=== PATIENT | female | born 1985 ===

== ENCOUNTER 2020-03-14 07:32 | Inpatient (IN) ==
[2020-03-14] MEDS ORDERED: OXYTOCIN 30 UNITS/500 ML BAG IV PRN (09:25)
[2020-03-14 09:50] LABS: Hematocrit (blood only) 34.7 % (37-47); Hemoglobin 11.9 g/dL (12.0-16.0); Mean Corpuscular Hemoglobin 29.5 pg (25-34); Mean Corpuscular Volume 85.9 fL (80-100); Mean Platelet Volume 12.6 fL (7.4-10.4); Platelet Count 170 K/uL (130-400); RDW Coefficient of Variation 14.3 % (11.5-14.5); RDW Standard Deviation 44.7 fL (36.4-46.3); Red Blood Count 4.04 M/uL (4.2-5.4); White Blood Count 12.58 K/uL (4.8-10.8)
--- NOTE | 2020-03-14 10:04 | Obstetrical Progress Note ---
Date of Service March 14, 2020 Assessment & Plan Admission and Anticipated Discharge Date Admission Date: March 14, 2020 Subjective Admit Note 34 F [id number] at 40.3 weeks admitted for induction of labor for post-dates . Her GBS is negative. Covid is negative. Cervix is closed/50/- 3/vertex/posterior/intact. Discussed need to ripen cervix with her and her . Will plan for Cytotec vaginally. EFW 8-9 lbs. Results & Data ([facility]) Vital Signs (Past 12 Hours) Vital Signs Temp Pulse Resp BP 03/14/20 08:10 36.8 C 77 18 118/65 03/14/20 08:09 36.8 C 77 18 118/65 03/14/20 08:02 77 132/56 L
[2020-03-14 10:06] LABS: Mean Corpuscular Hgb Conc 34.3 g/dL (32-36)
[2020-03-14] MEDS ORDERED: Nursing to Pharmacy Communication SCH (10:15)
[2020-03-14] MEDS: miSOPROStoL 25 MCG TAB PV SCH ×2 (10:48→14:57)
--- NOTE | 2020-03-14 10:53 | Obstetrical Progress Note ---
Date of Service March 14, 2020 Assessment & Plan Admission and Anticipated Discharge Date Admission Date: March 14, 2020 Physical Exam Physical Exam: Cytotec 25 mcg placed vaginally Constitutional: WD/WN, vitals as above comfortable Results & Data ([facility]) Vital Signs (Past 12 Hours) Vital Signs Temp Pulse Resp BP 03/14/20 08:10 36.8 C 77 18 118/65 03/14/20 08:09 36.8 C 77 18 118/65 03/14/20 08:02 77 132/56 L
[2020-03-14] MEDS ORDERED: miSOPROStoL 25 MCG TAB PV SCH (12:00)
--- NOTE | 2020-03-14 14:59 | Obstetrical Progress Note ---
Date of Service March 14, 2020 Assessment & Plan Admission and Anticipated Discharge Date Admission Date: March 14, 2020 Physical Exam Genitourinary: Manual OB Exam: + cervical dilation fingertip, + cervical effacement 50% and + station high OB Exam Monitor Tracing: + external FHT monitor used, + external uterine monitor used and + category I Cytotec 25 mcg placed vaginally Results & Data ([facility]) Vital Signs (Past 12 Hours) Vital Signs Temp Pulse Resp BP 03/14/20 11:51 68 124/72 03/14/20 11:50 36.7 C 68 18 124/72 03/14/20 08:10 36.8 C 77 18 118/65 03/14/20 08:09 36.8 C 77 18 118/65 03/14/20 08:02 77 132/56 L
[2020-03-14] MEDS ORDERED: DINOPROSTONE 10 MG INSERT PV ONE (19:48)
--- NOTE | 2020-03-14 19:48 | Obstetrical Progress Note ---
Date of Service March 14, 2020 Assessment & Plan Admission and Anticipated Discharge Date Admission Date: March 14, 2020 Physical Exam Genitourinary: Manual OB Exam: + cervical dilation fingertip, + cervical effacement 50% and + station high OB Exam Monitor Tracing: + external FHT monitor used, + external uterine monitor used and + category I Will place Cervidil for ripening Results & Data ([facility]) Vital Signs (Past 12 Hours) Vital Signs Temp Pulse Resp BP 03/14/20 19:04 36.6 C 18 03/14/20 18:59 77 124/67 03/14/20 16:06 74 127/70 03/14/20 11:51 68 124/72 03/14/20 11:50 36.7 C 68 18 124/72 03/14/20 08:10 36.8 C 77 18 118/65 03/14/20 08:09 36.8 C 77 18 118/65 03/14/20 08:02 77 132/56 L
--- NOTE | 2020-03-14 21:19 | Obstetrical Progress Note ---
Date of Service March 14, 2020 Assessment & Plan Admission and Anticipated Discharge Date Admission Date: March 14, 2020 Physical Exam Constitutional: WD/WN, vitals as above comfortable Genitourinary: Cervidil 10 mg placed vaginally for cervical ripening Results & Data ([facility]) Vital Signs (Past 12 Hours) Vital Signs Temp Pulse Resp BP 03/14/20 19:04 36.6 C 18 03/14/20 18:59 77 124/67 03/14/20 16:06 74 127/70 03/14/20 11:51 68 124/72 03/14/20 11:50 36.7 C 68 18 124/72
[2020-03-15] MEDS: LACTATED RINGER'S 1,000 ML IV PRN ×3 (00:09→06:06)
[2020-03-15] MEDS ORDERED: BUPIVACAINE 0.25% 30 ML VIAL ONE (00:18)
[2020-03-15] MEDS ORDERED: fentaNYL citrate 100 MCG/2 ML VIAL ONE (00:18)
[2020-03-15] MEDS ORDERED: ePHEDrine sulfate 50 MG/ML AMP ONE (00:18)
[2020-03-15] MEDS ORDERED: fentaNYL 2MCG/ML ROPIV 1.25MG/ML 100 ML BAG EPI ONE (00:19)
[2020-03-15] MEDS ORDERED: NALOXONE HCL 1 MG in SODIUM CHLORIDE 0.9% 1000ML 1,000 ML IV PRN (00:23)
[2020-03-15] MEDS ORDERED: NALOXONE HCL 0.4 MG/1 ML VIAL/CARP IV PRN (00:23)
[2020-03-15] MEDS ORDERED: ONDANSETRON INJ 2 MG/ML 2 ML VIAL IV PRN (00:23)
[2020-03-15] MEDS ORDERED: ePHEDrine sulfate 50 MG/ML AMP IV PRN (00:23)
[2020-03-15] MEDS ORDERED: fentaNYL 2MCG/ML ROPIV 1.25MG/ML 100 ML BAG EPI PRN (00:23)
[2020-03-15] MEDS ORDERED: DiphenhydrAMINE HCL 50 MG/ML VIAL IV PRN (00:23)
--- NOTE | 2020-03-15 00:25 | Anesthesiology Consultation ---
Date of Service March 15, 2020 Assessment & Plan (1) Encounter for pre-operative examination: Chart Review Chart Review: Patient NOT seen in Pre Admission Testing and Acceptable Risk for Labor Epidural Consults Requested none History Height/Weight Height: 5 ft 7 in Weight: 102.512 kg Allergies Allergy/AdvReac Type Severity Reaction Status Date / Time No Known Allergies Allergy Verified 03/14/20 19:32 Medications Home Medications Medication Instructions Recorded Confirmed Last Taken vit no.[id number] 1 tab PO DAILY 03/14/20 03/14/20 03/14/20 06:30 [ Vitamin] Active Medications Generic Name Dose Route Start Last Admin Trade Name Freq PRN Reason Stop Dose Admin Misoprostol 25 mcg 03/14/20 10:15 03/14/20 14:57 Misoprostol 25 Mcg Tab PV 04/13/20 10:14 25 mcg Q4H FRACISCO Administration Past Medical History Medical History SAB (spontaneous ) 2015 (spontaneous vaginal delivery) 2014 Exercise / Class Metabolic Activity II 4-5 Yardwork/Stairs/Walk up hill Past Anesthesia History No Hx of Anesthesia Complications and No Family Hx of Anesthesia Complications History of PONV No Hx of PONV and No Hx of Motion Sickness Social History Smoking Status: Never smoker Do You Dip or Chew Tobacco: No Hx Alcohol Use: No Hx Substance Use: No Physical Exam Vital Signs Last Vital Signs Temp 37.1 C 03/14/20 23:00 Pulse 72 03/15/20 00:37 Resp 18 03/14/20 23:00 BP 142/75 H 03/15/20 00:37 Pulse Ox 99 03/15/20 00:36 Testing Laboratory Results 03/14/20 09:35
--- NOTE | 2020-03-15 05:03 | Obstetrical Progress Note ---
Date of Service March 15, 2020 Assessment & Plan Admission and Anticipated Discharge Date Admission Date: March 14, 2020 Physical Exam Genitourinary: OB Exam Abdomen: + vertex and + regular contractions Manual OB Exam: + cervical dilation 9 cm, + cervical effacement 100%, + station -2 (will use peanut ball) and + amniotic fluid meconium OB Exam Monitor Tracing: + external FHT monitor used, + external uterine monitor used, + category I and + normal FHT variability AROM with Amni-hook light meconium fluid anterior lip Results & Data ([facility]) Vital Signs (Past 12 Hours) Vital Signs Temp Pulse Resp BP Pulse Ox 03/15/20 04:56 96 H 98 03/15/20 04:51 79 96 03/15/20 04:49 81 110/59 L 03/15/20 04:46 82 96 03/15/20 04:41 77 96 03/15/20 04:36 78 96 03/15/20 04:34 75 109/56 L 03/15/20 04:31 75 96 03/15/20 04:30 18 03/15/20 04:26 78 95 03/15/20 04:21 76 96 03/15/20 04:20 77 106/55 L 03/15/20 04:16 77 97 03/15/20 04:11 75 96 03/15/20 04:06 78 97 03/15/20 04:04 86 115/58 L 03/15/20 04:01 83 97 03/15/20 04:00 18 03/15/20 03:56 107 H 96 03/15/20 03:51 86 98 03/15/20 03:49 81 116/60 03/15/20 03:46 72 97 03/15/20 03:41 73 97 03/15/20 03:36 79 114/59 L 97 03/15/20 03:31 76 97 03/15/20 03:30 18 03/15/20 03:26 80 97 03/15/20 03:21 82 97 03/15/20 03:20 72 122/61 03/15/20 03:16 77 98 03/15/20 03:11 71 97 03/15/20 03:06 72 96 03/15/20 03:05 71 109/59 L 03/15/20 03:01 83 96 03/15/20 03:00 18 03/15/20 02:56 82 97 03/15/20 02:51 78 96 03/15/20 02:50 72 107/58 L 03/15/20 02:46 78 96 03/15/20 02:41 71 96 03/15/20 02:36 77 107/57 L 97 03/15/20 02:31 71 97 03/15/20 02:30 18 03/15/20 02:26 72 97 03/15/20 02:21 74 98 03/15/20 02:20 82 111/63 03/15/20 02:16 82 97 03/15/20 02:11 95 H 98 03/15/20 02:06 74 96 03/15/20 02:04 72 101/56 L 03/15/20 02:01 73 96 03/15/20 02:00 18 03/15/20 01:56 73 95 03/15/20 01:51 64 96 03/15/20 01:49 68 107/52 L 03/15/20 01:46 72 96 03/15/20 01:41 77 97 03/15/20 01:36 68 97 03/15/20 01:34 67 116/57 L 03/15/20 01:31 78 97 03/15/20 01:30 18 03/15/20 01:26 75 97 03/15/20 01:21 65 97 03/15/20 01:20 71 112/59 L 03/15/20 01:16 72 98 03/15/20 01:11 71 99 03/15/20 01:06 78 99 03/15/20 01:02 75 115/58 L 03/15/20 01:01 84 98 03/15/20 01:00 18 03/15/20 00:56 84 97 03/15/20 00:55 82 114/59 L 03/15/20 00:53 89 124/63 03/15/20 00:51 84 126/67 98 03/15/20 00:50 18 03/15/20 00:49 88 119/62 03/15/20 00:47 83 116/56 L 03/15/20 00:46 79 118/59 L 98 03/15/20 00:45 18 03/15/20 00:43 81 126/58 L 03/15/20 00:41 82 99 03/15/20 00:40 18 03/15/20 00:39 84 130/65 03/15/20 00:37 72 142/75 H 03/15/20 00:36 78 99 03/15/20 00:32 75 141/81 H 03/14/20 23:00 37.1 C 68 18 112/58 L 03/14/20 19:04 36.6 C 18 03/14/20 18:59 77 124/67
--- NOTE | 2020-03-15 07:34 | Delivery Summary ---
Vaginal Delivery Summary Date of Service March 15, 2020 Vaginal Delivery Summary Delivery Note live female DALILA over intact perineum with delayed cord clamping. Short cord is noted. Apgars 7/9 weight pending. Cord blood obtained and placenta delivered spontaneously and intact. Straight cath used to empty bladder of 200 ml. clear urine. First degree tear repaired with 3/0 Vicryl suture. EBL 200 ml. Final sponge needle and instrument count are correct. Mom and baby stable,
[2020-03-15] MEDS ORDERED: ACETAMINOPHEN 325 MG TAB PO PRN (07:36)
[2020-03-15] MEDS ORDERED: BENZOCAINE 20% AER SPR 82.5 GM CAN EXT PRN (07:36)
[2020-03-15] MEDS ORDERED: DIPHTHERIA/TETANUS/PERTUSSIS 0.5 ML SYR/VIAL IM ONE (07:36)
[2020-03-15] MEDS ORDERED: SUPERCREAM 0.870% 15 GM JAR EXT PRN (07:36)
[2020-03-15] MEDS ORDERED: bisacodyL 10 MG SUPP PR PRN (07:36)
[2020-03-15] MEDS ORDERED: OXYTOCIN 30 UNITS/500 ML BAG IV PRN (07:36)
[2020-03-15] MEDS ORDERED: HYDROCORTISONE ACETATE 25 MG SUPP PR PRN (07:36)
--- NOTE | 2020-03-15 09:00 | Anesthesia Procedure Note ---
Date of Service March 15, 2020 Anesthesia Post Epidural Note Vital Signs Vital Signs: Temp Pulse Resp BP Pulse Ox 37.2 C 86 20 126/85 98 03/15/20 06:21 03/15/20 08:52 03/15/20 07:36 03/15/20 08:52 03/15/20 07:16 Pain Intensity Bilateral Abdomen: Pain Intensity: 0 Notes Mental Status: alert / awake / arousable and participated in evaluation Nausea / Vomiting: adequately controlled Pain: adequately controlled Airway Patency, RR, SpO2: stable & adequate BP & HR: stable & adequate Hydration State: stable & adequate Neuraxial Anesthesia: was administered and sensory block is resolving Anesthetic Complications: no major complications apparent and Pt Satisfied with anesthetic care Epidural: Removed without complications and With tip intact
[2020-03-15] MEDS: DOCUSATE SODIUM 100 MG CAP PO SCH ×2 (13:57→21:17)
[2020-03-15] MEDS: PRENATAL VITAMIN 1 TAB PO SCH ×2 (13:57→13:58)
[2020-03-15] MEDS: IBUPROFEN 600 MG TAB PO PRN ×2 (18:15→23:28)
[2020-03-16] MEDS: IBUPROFEN 600 MG TAB PO PRN (04:24)
[2020-03-16 05:58] LABS: Hematocrit (blood only) 31.1 % (37-47); Hemoglobin 10.5 g/dL (12.0-16.0); Mean Corpuscular Hemoglobin 28.8 pg (25-34); Mean Corpuscular Hgb Conc 33.8 g/dL (32-36); Mean Corpuscular Volume 85.4 fL (80-100); Mean Platelet Volume 12.7 fL (7.4-10.4); Platelet Count 140 K/uL (130-400); RDW Coefficient of Variation 14.1 % (11.5-14.5); RDW Standard Deviation 43.9 fL (36.4-46.3); Red Blood Count 3.64 M/uL (4.2-5.4); White Blood Count 13.16 K/uL (4.8-10.8)
[2020-03-16] MEDS: DOCUSATE SODIUM 100 MG CAP PO SCH (08:48)
[2020-03-16] MEDS: PRENATAL VITAMIN 1 TAB PO SCH ×2 (11:09)
--- NOTE | 2020-03-16 11:35 | Obstetrical Progress Note ---
Date of Service March 16, 2020 Assessment & Plan (1) Normal course: PPd #1 pt doing well pt wishes to be disch home Subjective Ambulation: ambulating normally Voiding: no voiding problems Passing Gas:: Yes Diet Tolerance:: regular diet Lochia:: Small Feeding Type:: breast feeding Review of Systems All systems reviewed & are unremarkable except as noted in HPI & below Physical Exam Constitutional WD/WN, vitals as above well developed and well nourished Eyes PERRL, conjunctivae normal, anicteric sclerae Neck trachea midline, no thyromegaly Respiratory normal respiratory effort, lungs clear to auscultation Auscultation: no crackles, no rales and no wheezes Cardiovascular RRR, no murmur, no edema Gastrointestinal (Abdomen) normal bowel sounds, soft, nontender, no hepatosplenomegaly Uterus is below umbilicus Musculoskeletal no cyanosis or clubbing, extremities motor strength 5/5 Skin no rashes, warm and dry Neurologic patellar DTR's 2+ bilat, sensation intact Psychiatric A+Ox3, euthymic affect Genitourinary normal external appearance Results & Data ([facility]) Vital Signs (Past 12 Hours) Vital Signs Temp Pulse Resp BP Pulse Ox 03/16/20 10:42 36.4 C L 62 18 120/73 96 03/16/20 07:30 36.4 C L 62 18 120/73 03/16/20 04:20 36.5 C 71 16 119/77
[2020-03-16] MEDS ORDERED: bisacodyL 5 MG TABEC PO SCH (20:00)
== END 2020-03-16 13:16 | disposition home or self-care (01) | DRG 807 ==
LOC: 4S1 07:32 → 4S2 03-15 10:52